=== PATIENT | female | born 2000 | race Caucasian/White ===

== ENCOUNTER 2023-04-11 10:37 | Inpatient (IN) ==
[2023-04-11 11:25] LABS: Basophils # (auto) 0.04 K/uL (0.00-0.20); Basophils % (auto) 0.3 %; Eosinophils # (auto) 0.02 K/uL (0.00-0.50); Eosinophils % (auto) 0.2 %; Hematocrit (blood only) 36.5 % (37.0-47.0); Hemoglobin 12.3 g/dl (12.0-16.0); Immature Granulocytes # (auto) 0.07 K/uL (0.01-0.20); Immature Granulocytes % (auto) 0.5 %; Lymphocytes # (auto) 1.34 K/uL (1.20-3.40); Lymphocytes % (auto) 10.4 %; Mean Corpuscular Hgb Conc 33.7 g/dL (32.0-36.0); Mean Platelet Volume 8.9 fL (9.4-12.4); Monocytes # (auto) 0.67 K/uL (0.11-0.59); Monocytes % (auto) 5.2 %; Neutrophils % (auto) 83.4 %; Platelet Count 322 K/uL (130-400); RDW Coefficient of Variation 11.6 % (11.5-14.5); RDW Standard Deviation 37.2 fL (36.4-46.3); White Blood Count 12.94 K/ul (4.8-10.8)
--- NOTE | 2023-04-11 11:29 | XRay Report ---
SINGLE VIEW CHEST CLINICAL HISTORY: Atypical chest pain FINDINGS: An AP, portable, upright chest radiograph is obtained. No prior studies are available for c omparison at the time of dictation. The cardiomediastinal silhouette is unremarkable. The lungs and p leural spaces are clear. No pneumothorax is seen. The bony thorax is grossly intact. IMPRESSION: No active disease in the chest. ACT 112: Negative or not required by law. Electronically signed by: Ceasra Munson M.D. 04/11/2023 11:28 AM
[2023-04-11 11:34] LABS: INR 1.1 (0.9-1.1); Partial Thromboplastin Ratio 0.7; Prothrombin Time 11.6 Seconds (9.0-12.0)
[2023-04-11 11:37] LABS: Partial Thromboplastin Time < 20 Seconds (21-31)
[2023-04-11 11:39] LABS: Albumin Level 4.2 gm/dl (3.4-5.0); Anion Gap 8 (3-11); Bilirubin,Total 1.8 mg/dl (0.2-1.0); Calcium 8.6 mg/dl (8.6-10.3); Carbon Dioxide 23 mmol/L (21-32); Chloride 105 mmol/L (98-107); Sodium 136 mmol/L (136-145)
[2023-04-11 11:44] LABS: D Dimer 960 ug/L FEU (0-500)
[2023-04-11 11:45] LABS: Alanine Aminotransferase 11 U/L (7-52); Alkaline Phosphatase 48 U/L (34-104); Aspartate Aminotransferase 14 U/L (13-39); Blood Urea Nitrogen 17 mg/dl (6-23); Creatinine Clr Calc Pharmacy 78.3 ml/min; Est GFR (African American) 86.3 ml/min; Est GFR (Non-African American) 74.5 ml/min; Globulin 2.1 gm/dl (2.5-4.0); Glucose 175 mg/dl (70-99(Fasting)); Total Protein 6.3 gm/dl (6.0-8.3)
[2023-04-11 11:51] LABS: Troponin I High Sensitivity < 2.3 pg/ml (0-14)
[2023-04-11] MEDS: SODIUM CHLORIDE 0.9% 1,000 ML IV ONE (11:58)
[2023-04-11] MEDS: ONDANSETRON INJ 2 MG/ML 2 ML VIAL IV STA (11:58)
--- NOTE | 2023-04-11 12:07 | Emergency Department Note ---
History of Present Illness General Chief complaint: Illness Stated complaint: dizziness, bleeding, nauseous, blurred vision, sob Time Seen by Provider: 04/11/23 11:04 History of Present Illness Maximum Pain Intensity: 6 NAME: FERNANDO FARMER AGE: 23 SEX: F : 2000 ARRIVES VIA: Walk-In INFORMANT: Patient ED PROVIDER(S): JESSICA Vega, Romeo Bermudez, The patient is a 23-year-old female who arrives to the emergency department for vaginal bleeding, dizziness, pain with inspiration in her chest, as well as some diffuse lower abdominal pain. The patient was seen here yesterday because she was having abnormal vaginal bleeding. The patient reports on March 06 she took a Plan B after unprotected intercourse. She reports over the last month she has had intermittent irregular vaginal bleeding. Yesterday she received a thorough workup including a beta hCG quant as well as a transvaginal ultrasound. The beta-hCG quant resulted at 302. The transvaginal ultrasound was negative for intra uterine or extra uterine gestation. The patient was discharged home in good condition, according to the providers note she was instructed to return for any concerning signs or symptoms. Allergies Allergy/AdvReac Type Severity Reaction Status Date / Time No Known Allergies Allergy Verified 04/10/23 15:20 Past Med/Surg History Medical History Encounter for pre-operative examination No significant past medical history Surgical History S/P ACL reconstruction Social History Smoking Status: Former smoker Second Hand Exposure: No; Do You Dip or Chew Tobacco: No; Tobacco Cessation Education Requested by Patient: No Hx Alcohol Use: Yes Hx Substance Use: Yes Last Used Substance: Days (ago) Last Used Substance Other:: 5-7 days ago Preferred Language: American Communication Ability: Effective [employer] Supervisor Required: No Beliefs That Will Affect Care: None Current Living Situation: Other Current Living Situation Comment: friends Feels Safe at Home: Yes Safety Concerns: Feels Safe At This Time Assistive Devices: None Physical Exam Vital Signs Vital Signs - 24 hr 04/11/23 10:39 04/11/23 12:02 04/11/23 12:02 Temperature 36.8 C Temperature Source Temporal Artery Scan Pulse Rate 109 H Pulse Rate [Apical] 72 Pulse Rate from SpO2 Sensor Pulse Rhythm [Apical] Regular Respiratory Rate 18 18 Respiratory Effort / Characteristics Non-Labored Spontaneous Non-Labored Spontaneous Respiratory Depth Normal Normal Respiratory Pattern Regular Blood Pressure 104/68 Blood Pressure [Right Arm] 115/69 Blood Pressure Mean 80 Blood Pressure Mean [Right Arm] 84 Blood Pressure Position Sitting Blood Pressure Position [Right Arm] Lying Pulse Oximetry 100 100 100 Oxygen Delivery Method Room Air Room Air Room Air Sepsis Recent Fever Within 48 Hours No Sepsis New/Unexplained Change in Mental Status No Sepsis Action Taken by Nursing No Action Required 04/11/23 12:43 04/11/23 12:44 04/11/23 12:45 Temperature Temperature Source Pulse Rate 73 70 Pulse Rate [Apical] 72 Pulse Rate from SpO2 Sensor 74 Pulse Rhythm [Apical] Respiratory Rate 16 22 Respiratory Effort / Characteristics Respiratory Depth Respiratory Pattern Blood Pressure Blood Pressure [Right Arm] 111/66 Blood Pressure Mean Blood Pressure Mean [Right Arm] 81 Blood Pressure Position Blood Pressure Position [Right Arm] Lying Pulse Oximetry 100 100 Oxygen Delivery Method Sepsis Recent Fever Within 48 Hours Sepsis New/Unexplained Change in Mental Status Sepsis Action Taken by Nursing 04/11/23 12:45 04/11/23 12:58 04/11/23 12:58 Temperature Temperature Source Pulse Rate 70 76 Pulse Rate [Apical] Pulse Rate from SpO2 Sensor 70 78 Pulse Rhythm [Apical] Respiratory Rate 22 14 Respiratory Effort / Characteristics Respiratory Depth Respiratory Pattern Blood Pressure 129/73 Blood Pressure [Right Arm] Blood Pressure Mean 80 Blood Pressure Mean [Right Arm] Blood Pressure Position Blood Pressure Position [Right Arm] Pulse Oximetry 100 100 Oxygen Delivery Method Sepsis Recent Fever Within 48 Hours Sepsis New/Unexplained Change in Mental Status Sepsis Action Taken by Nursing 04/11/23 13:00 04/11/23 13:00 04/11/23 13:15 Temperature Temperature Source Pulse Rate 73 74 Pulse Rate [Apical] Pulse Rate from SpO2 Sensor 74 74 Pulse Rhythm [Apical] Respiratory Rate 18 18 Respiratory Effort / Characteristics Respiratory Depth Respiratory Pattern Blood Pressure 109/73 Blood Pressure [Right Arm] Blood Pressure Mean 79 Blood Pressure Mean [Right Arm] Blood Pressure Position Blood Pressure Position [Right Arm] Pulse Oximetry 100 100 Oxygen Delivery Method Sepsis Recent Fever Within 48 Hours Sepsis New/Unexplained Change in Mental Status Sepsis Action Taken by Nursing 04/11/23 13:15 04/11/23 13:35 04/11/23 13:45 Temperature Temperature Source Pulse Rate 87 81 Pulse Rate [Apical] Pulse Rate from SpO2 Sensor Pulse Rhythm [Apical] Respiratory Rate 20 22 Respiratory Effort / Characteristics Respiratory Depth Respiratory Pattern Blood Pressure 119/73 Blood Pressure [Right Arm] Blood Pressure Mean 79 Blood Pressure Mean [Right Arm] Blood Pressure Position Blood Pressure Position [Right Arm] Pulse Oximetry Oxygen Delivery Method Sepsis Recent Fever Within 48 Hours Sepsis New/Unexplained Change in Mental Status Sepsis Action Taken by Nursing 04/11/23 15:00 04/11/23 16:03 04/11/23 16:16 Temperature 37.6 C H Temperature Source Oral Pulse Rate 103 H Pulse Rate [Apical] 108 H 72 Pulse Rate from SpO2 Sensor Pulse Rhythm [Apical] Regular Respiratory Rate 18 20 18 Respiratory Effort / Characteristics Non-Labored Spontaneous Non-Labored Spontaneous Normal for Patient Respiratory Depth Normal Normal Respiratory Pattern Regular Blood Pressure 103/68 Blood Pressure [Right Arm] 129/77 113/67 Blood Pressure Mean Blood Pressure Mean [Right Arm] 94 82 Blood Pressure Position Blood Pressure Position [Right Arm] Sitting Semi-fowlers Pulse Oximetry 100 100 100 Oxygen Delivery Method Room Air Room Air Room Air Sepsis Recent Fever Within 48 Hours Sepsis New/Unexplained Change in Mental Status Sepsis Action Taken by Nursing VITALS: Vitals are noted on the nurse's note and reviewed by myself. Vital signs stable. GENERAL: 23-year-old female, in no acute distress, nondiaphoretic, well- developed well-nourished. SKIN: The skin was without rashes, erythema, edema, or bruising. HEAD: Normocephalic atraumatic. HEART: Regular rate and rhythm without murmurs gallops or rubs. LUNGS: Clear to auscultation bilaterally without wheezes, rales or rhonchi. No retractions or accessory muscle use. ABDOMEN: Positive bowel sounds x 4. Soft, slightly tender to palpation diffusely in the lower abdomen, without masses or organomegaly. Kapadia sign negative. No guarding or rebound tenderness. NEURO: Patient was alert and oriented to person place and time. No focal neurological deficits. Course Administered Medications Lactated Ringer's (Lr) 1,000 mls @ 15 mls/hr IV .Q24H ELIER Stop: 05/11/23 15:44 Last Infusion: 04/11/23 16:10 Dose: Infused Documented By: Admin: 04/11/23 16:09 Dose: 15 mls/hr Documented By: MIKE Discontinued Medications Bupivacaine HCl (Bupivacaine 0.5 % 5 Mg/1 Ml Mpf 30ml Vial) Confirm Administered Dose 30 ml .ROUTE .STK-MED ONE Stop: 04/11/23 16:18 Last Admin: 04/11/23 17:45 Dose: 10 ml Documented By: SANDI Sodium Chloride (Nss) 1,000 mls @ 999 mls/hr IV .Q1H1M ONE Stop: 04/11/23 12:06 Last Infusion: 04/11/23 14:22 Dose: Infused Documented By: Admin: 04/11/23 11:58 Dose: 999 mls/hr Documented By: CLIVE Ioversol (Optiray 320 125ml) 119 ml IV ONCE ONE Stop: 04/11/23 12:25 Last Admin: 04/11/23 12:24 Dose: 119 ml Documented By: JOSH Ondansetron HCl (Ondansetron Inj 2 Mg/Ml 2 Ml Vial) 4 mg IV NOW STA Stop: 04/11/23 11:07 Last Admin: 04/11/23 11:58 Dose: 4 mg Documented By: CLIVE Tranexamic Acid (Tranexamic Acid / 0.7% Nacl 1000mg/100ml Bag) Confirm Administered Dose 1,000 mg IV .STK-MED ONE Stop: 04/11/23 16:08 Last Admin: 04/11/23 16:09 Dose: 1,000 mg Documented By: MIKE Medical Decision Making Differential Diagnosis Appendicitis, ovarian cyst, ovarian torsion, ectopic , TOA, PID, infections, diverticulitis, UTI, obstruction, mesenteric ischemia, aortic pathology, inflammatory bowel disease, renal colic, PUD, pancreatitis, biliary pathology, hernia, volvulus, constipation, as well as other pathologies. Medical Records Attestation: I reviewed the patient's medical records. Home Medications Current Medication List: was personally reviewed by me Laboratory Data Attestation: I reviewed the patient's lab results. leukocytosis 12.94, hemoglobin 12.3, hematocrit 36.5, no electrolyte abnormalities, D-dimer 960, blood type a positive, antibody screen negative. 04/11/23 20:25 04/11/23 11:03 Lab Results 04/11/23 04/11/23 Range/Units 11:03 15:34 WBC 12.94 H 13.12 H (4.8-10.8) K/ul RBC 4.10 L 3.56 L (4.20-5.40) M/uL Hgb 12.3 10.6 L (12.0-16.0) g/dl Hct 36.5 L 31.8 L (37.0-47.0) % MCV 89.0 89.3 (80.0-100.0) fL MCH 30.0 29.8 (25.0-34.0) pg MCHC 33.7 33.3 (32.0-36.0) g/dL RDW Std Deviation 37.2 37.0 (36.4-46.3) fL RDW Coeff of Eber 11.6 11.4 L (11.5-14.5) % Plt Count 322 275 (130-400) K/uL MPV 8.9 L 8.8 L (9.4-12.4) fL Immature Gran % (Auto) 0.5 % Neut % (Auto) 83.4 % Lymph % (Auto) 10.4 % [facility] % (Auto) 5.2 % Eos % (Auto) 0.2 % Baso % (Auto) 0.3 % Neut # (Auto) 10.80 H (1.40-6.50) K/uL Lymph # (Auto) 1.34 (1.20-3.40) K/uL [facility] # (Auto) 0.67 H (0.11-0.59) K/uL Eos # (Auto) 0.02 (0.00-0.50) K/uL Baso # (Auto) 0.04 (0.00-0.20) K/uL Immature Gran # (Auto) 0.07 (0.01-0.20) K/uL PT 11.6 (9.0-12.0) Seconds INR 1.1 (0.9-1.1) APTT < 20 L (21-31) Seconds PTT Ratio 0.7 D-Dimer 960 H* (0-500) ug/L FEU Sodium 136 (136-145) mmol/L Potassium 4.0 (3.5-5.1) mmol/L Chloride 105 (98-107) mmol/L Carbon Dioxide 23 (21-32) mmol/L Anion Gap 8 (3-11) BUN 17 (6-23) mg/dl Creatinine 1.06 (0.6-1.2) mg/dl Est Cr Clr Drug Dosing 78.3 ml/min Est GFR ( Amer) 86.3 ml/min Est GFR (Non-Af Amer) 74.5 ml/min BUN/Creatinine Ratio 16.0 (10-20) Glucose 175 H (70-99(Fasting)) mg/dl Calcium 8.6 (8.6-10.3) mg/dl Total Bilirubin 1.8 H (0.2-1.0) mg/dl AST 14 (13-39) U/L ALT 11 (7-52) U/L Alkaline Phosphatase 48 (34-104) U/L Troponin I High Sens < 2.3 (0-14) pg/ml Total Protein 6.3 (6.0-8.3) gm/dl Albumin 4.2 (3.4-5.0) gm/dl Globulin 2.1 L (2.5-4.0) gm/dl Albumin/Globulin Ratio 2.0 (0.9-2) HCG, Quant 155 mIU/ml Blood Type A Positive Antibody Screen NEGATIVE Imaging Data Attestation: I personally reviewed and interpreted this imaging study as follows: My Impression: Initial x-ray interpretation per myself shows no acute cardiopulmonary abnormality, will await formal radiology report. Radiologist's Impression: Chest X-Ray 04/11/23 10:44 SINGLE VIEW CHEST CLINICAL HISTORY: Atypical chest pain FINDINGS: An AP, portable, upright chest radiograph is obtained. No prior studies are available for comparison at the time of dictation. The cardiomediastinal silhouette is unremarkable. The lungs and pleural spaces are clear. No pneumothorax is seen. The bony thorax is grossly intact. IMPRESSION: No active disease in the chest. ACT 112: Negative or not required by law. Electronically signed by: Ceasar Munson M.D. 04/11/2023 11:28 AM Chest CTA 04/11/23 12:07 CT ANGIOGRAPHY OF THE CHEST, PULMONARY EMBOLUS PROTOCOL CLINICAL HISTORY: Shortness of breath. COMPARISON STUDY: Chest radiograph April 11, 2023 at 11:18 AM. TECHNIQUE: Following IV administration of 119 mL of Optiray, helical axial images of the chest were obtained utilizing the pulmonary embolus protocol. Maximal intensity projections and sagittal and coronal reformats were viewed on an independent 3D workstation. IV contrast was administered without complication. Automated exposure control was utilized for the study. A dose lowering technique was utilized adhering to the principles of ALARA. CT DOSE: 432.36 mGy.cm FINDINGS: No pulmonary emboli are identified. There is no thoracic aortic dissection. Size of the heart is normal. There is no pericardial effusion. Incidental note is made of an aberrant right subclavian artery. Lungs are clear. No pneumothorax or pleural effusion. No pulmonary nodules. Central airways are patent. Bony thorax is unremarkable. Visualized portions of the upper abdomen demonstrate a small amount of perihepatic and perisplenic fluid. In addition, there is fluid within the lesser sac. Fluid measures approximately 49 Hounsfield units. This is suggestive of hemoperitoneum. IMPRESSION: 1. No pulmonary emboli identified. No acute intrathoracic findings. 2. Small amount of hemoperitoneum within the upper abdomen. This is nonspecific however correlation with test is recommended. If positive, a ruptured ectopic is the diagnosis of exclusion. A ruptured ovarian cyst could result in a similar imaging appearance. A follow-up pelvic ultrasound is recommended. Findings discussed with Arleth Elkins at time of dictation. ACT 112: Negative or not required by law. Electronically signed by: Edd Dunbar M.D. 04/11/2023 12:41 PM Pelvis Ultrasound 04/11/23 12:48 ULTRASOUND OF THE PELVIS CLINICAL HISTORY: Hemoperitoneum seen on chest CT. Positive test. COMPARISON STUDY: Pelvic ultrasound dated 04/10/2023. Chest CT dated 04/11/2023. TECHNIQUE: Real-time, grayscale, and color flow sonography of the pelvis is performed both transabdominally and endovaginally. Images are reviewed in the transverse and longitudinal planes. The endovaginal examination was performed for better assessment of the adnexa. FINDINGS: Uterus: The uterus is normal in size and echotexture, measuring 8.0 x 3.5 x 3.4 cm. Endometrium: The endometrium is normal in appearance, and the endometrial stripe is normal in thickness measuring up to 0.4 cm. There is trace fluid versus a tiny cystic focus within the endometrium. No intrauterine gestation is seen. Ovaries: The ovaries are normal in size and morphology. The right ovary measures 2.3 x 1.3 x 3.0 cm and the left ovary measures 2.4 x 1.6 x 1.5 cm. Bilateral follicles are noted. Normal Doppler waveforms are shown within both ovaries. Pelvis: There is a moderate to large volume of complex free fluid in the pelvis. This is also seen in the upper abdomen. No definite adnexal lesion is identified. IMPRESSION: 1. There is a moderate to large volume of complex free fluid in the pelvis. This is there is new from yesterday and consistent with hemoperitoneum when correlated with today's chest CT. Fluid extends into the upper abdomen. Although no definite adnexal lesion is identified, given the findings of a positive beta hCG and hemoperitoneum a rupturing ectopic is the diagnosis of exclusion. Emergent obstetrical surgical assessment is required. 2. The ovaries are normal as imaged. ACT 112: Negative or not required by law. Electronically signed by: Ceasar Munson M.D. 04/11/2023 2:52 PM Transvaginal US 04/11/23 12:48 ULTRASOUND OF THE PELVIS CLINICAL HISTORY: Hemoperitoneum seen on chest CT. Positive test. COMPARISON STUDY: Pelvic ultrasound dated 04/10/2023. Chest CT dated 04/11/2023. TECHNIQUE: Real-time, grayscale, and color flow sonography of the pelvis is performed both transabdominally and endovaginally. Images are reviewed in the transverse and longitudinal planes. The endovaginal examination was performed for better assessment of the adnexa. FINDINGS: Uterus: The uterus is normal in size and echotexture, measuring 8.0 x 3.5 x 3.4 cm. Endometrium: The endometrium is normal in appearance, and the endometrial stripe is normal in thickness measuring up to 0.4 cm. There is trace fluid versus a tiny cystic focus within the endometrium. No intrauterine gestation is seen. Ovaries: The ovaries are normal in size and morphology. The right ovary measures 2.3 x 1.3 x 3.0 cm and the left ovary measures 2.4 x 1.6 x 1.5 cm. Bilateral follicles are noted. Normal Doppler waveforms are shown within both ovaries. Pelvis: There is a moderate to large volume of complex free fluid in the pelvis. This is also seen in the upper abdomen. No definite adnexal lesion is identified. IMPRESSION: 1. There is a moderate to large volume of complex free fluid in the pelvis. This is there is new from yesterday and consistent with hemoperitoneum when correlated with today's chest CT. Fluid extends into the upper abdomen. Although no definite adnexal lesion is identified, given the findings of a positive beta hCG and hemoperitoneum a rupturing ectopic is the diagnosis of exclusion. Emergent obstetrical surgical assessment is required. 2. The ovaries are normal as imaged. ACT 112: Negative or not required by law. Electronically signed by: Ceasar Munson M.D. 04/11/2023 2:52 PM Blood Pressure Blood Pressure Findings: Normal blood pressure MDM Narrative The patient is a 23-year-old female arriving to the emergency department for the evaluation of the above-stated complaint. Upon examination the patient is expressing chest pain with inspiration, she reports some dizziness with changing positions. She denies any significant increase in her lower abdominal tenderness, however she does state that she is having increased vaginal bleeding. She was instructed to return tomorrow for repeat hCG to ensure that her hCG level is declining. Her initial orders were placed in triage. A saline lock was obtained, CBC, CMP, beta quant, ABO Rh, D-dimer were ordered based on the patient's symptoms. 1 L of normal saline as well as 4 mg of IV Zofran were given to the patient. Labs showed a decrease in hemoglobin from the day before of 2 points. The D-dimer did result as elevated at 950, therefore a CT PE study was obtained. I was contacted by Dr. Dunbar regarding the CT report. He reported the patient had a hemoperitoneum that he was able to visualize while performing the CT PE study. At this time I contacted Dr. Mcdonnell from [employer] who recommended a repeat CBC, and a repeat transvaginal/pelvic ultrasound. Repeat labs resulted at 10.6 hemoglobin. Transvaginal/pelvic ultrasound shows a moderate to large volume of complex free fluid in the pelvis, new from yesterday. This is consistent with a hemoperitoneum, the fluid extends into the upper abdomen. Given the patient's most recent diagnosis and decreasing hCG level it is consistent with an ectopic rupture. Dr. Mcdonnell was contacted immediately after I received the report, she viewed the report herself and assumed care of patient for immediate surgical intervention. Preoperative orders for type and screen, and EKG were placed at that time. The patient was consulted by Dr. Mcdonnell and taken assisted to the OR via staff. Impression & Plan Ruptured ectopic , Hemoperitoneum Discharge Plan Visit Data Chief Complaint: Illness Stated Complaint: dizziness, bleeding, nauseous, blurred vision, sob ED Provider: Romeo Bermudez ED Midlevel Provider: Arleth Elkins Discharge Problem: Ruptured ectopic , Hemoperitoneum Patient Disposition: Admitted As Inpatient Discharge Instructions Interventions: ED Discharge Assessment Last Done: 04/11/23 16:16
[2023-04-11] MEDS: OPTIRAY 320 125ml IV ONE (12:24)
--- NOTE | 2023-04-11 12:42 | CT Scan Report ---
CT ANGIOGRAPHY OF THE CHEST, PULMONARY EMBOLUS PROTOCOL CLINICAL HISTORY: Shortness of breath. COMPARISON STUDY: Chest radiograph April 11, 2023 at 11:18 AM. TECHNIQUE: Following IV administration of 119 mL of Optiray, helical axial images of the chest were o btained utilizing the pulmonary embolus protocol. Maximal intensity projections and sagittal and cor onal reformats were viewed on an independent 3D workstation. IV contrast was administered without co mplication. Automated exposure control was utilized for the study. A dose lowering technique was ut ilized adhering to the principles of ALARA. CT DOSE: 432.36 mGy.cm FINDINGS: No pulmonary emboli are identified. There is no thoracic aortic dissection. Size of the he art is normal. There is no pericardial effusion. Incidental note is made of an aberrant right subclav matty artery. Lungs are clear. No pneumothorax or pleural effusion. No pulmonary nodules. Central airwa ys are patent. Bony thorax is unremarkable. Visualized portions of the upper abdomen demonstrate a sm all amount of perihepatic and perisplenic fluid. In addition, there is fluid within the lesser sac. F luid measures approximately 49 Hounsfield units. This is suggestive of hemoperitoneum. IMPRESSION: 1. No pulmonary emboli identified. No acute intrathoracic findings. 2. Small amount of hemoperitoneum within the upper abdomen. This is nonspecific however correlation w ith test is recommended. If positive, a ruptured ectopic is the diagnosis of excl usion. A ruptured ovarian cyst could result in a similar imaging appearance. A follow-up pelvic ultra sound is recommended. Findings discussed with Arleth Elkins at time of dictation. ACT 112: Negative or not required by law. Electronically signed by: Edd Dunbar M.D. 04/11/2023 12:41 PM
--- NOTE | 2023-04-11 14:54 | Ultrasound Report ---
ULTRASOUND OF THE PELVIS CLINICAL HISTORY: Hemoperitoneum seen on chest CT. Positive test. COMPARISON STUDY: Pelvic ultrasound dated 04/10/2023. Chest CT dated 04/11/2023. TECHNIQUE: Real-time, grayscale, and color flow sonography of the pelvis is performed both transabdom inally and endovaginally. Images are reviewed in the transverse and longitudinal planes. The endovagi nal examination was performed for better assessment of the adnexa. FINDINGS: Uterus: The uterus is normal in size and echotexture, measuring 8.0 x 3.5 x 3.4 cm. Endometrium: The endometrium is normal in appearance, and the endometrial stripe is normal in thickne ss measuring up to 0.4 cm. There is trace fluid versus a tiny cystic focus within the endometrium. No intrauterine gestation is seen. Ovaries: The ovaries are normal in size and morphology. The right ovary measures 2.3 x 1.3 x 3.0 cm a nd the left ovary measures 2.4 x 1.6 x 1.5 cm. Bilateral follicles are noted. Normal Doppler waveform s are shown within both ovaries. Pelvis: There is a moderate to large volume of complex free fluid in the pelvis. This is also seen in the upper abdomen. No definite adnexal lesion is identified. IMPRESSION: 1. There is a moderate to large volume of complex free fluid in the pelvis. This is there is new from yesterday and consistent with hemoperitoneum when correlated with today's chest CT. Fluid extends in to the upper abdomen. Although no definite adnexal lesion is identified, given the findings of a posi tive beta hCG and hemoperitoneum a rupturing ectopic is the diagnosis of exclusion. Emergen t obstetrical surgical assessment is required. 2. The ovaries are normal as imaged. ACT 112: Negative or not required by law. Electronically signed by: Ceasar Munson M.D. 04/11/2023 2:52 PM
--- NOTE | 2023-04-11 15:07 | Electrocardiogram Report ---
Test Reason : Blood Pressure : / mmHG Vent. Rate : 124 BPM Atrial Rate : 124 BPM P-R Int : 116 ms QRS Dur : 066 ms QT Int : 306 ms P-R-T Axes : 084 086 056 degrees QTc Int : 439 ms Sinus tachycardia Otherwise normal ECG No previous ECGs available Confirmed by Edward Kerr ([id number]) on 04/11/2023 3:06:30 PM Referred By: REFERRED SELF Confirmed By:Edward Kerr
[2023-04-11] MEDS ORDERED: PROPOFOL IV EMULSION 10 MG/ML 20 ML VIAL IV ONE (15:40)
[2023-04-11] MEDS ORDERED: DEXAMETHASONE SOD INJ 4 MG/ML VIAL ONE (15:40)
[2023-04-11] MEDS ORDERED: ONDANSETRON INJ 2 MG/ML 2 ML VIAL ONE (15:40)
[2023-04-11] MEDS ORDERED: ROCURONIUM BROMIDE 10 MG/ML 5 ML VIAL IV ONE (15:40)
[2023-04-11] MEDS ORDERED: SUCCINYLCHOLINE CHLORIDE 20 MG/ML 10 ML VIAL IV ONE (15:40)
--- NOTE | 2023-04-11 15:40 | OB/GYN Consultation ---
Date of Consultation April 11, 2023 Assessment & Plan (1) Ruptured ectopic : I discussed the physical exam, lab, imaging findings with patient. Given the drop in hemoglobin, sudden onset abdominal pain, physical exam findings of tenderness and guarding, and appearance of blood in the abdomen, this appears to be a ruptured ectopic . I advised to the patient that we proceed to the operating room for diagnostic laparoscopy for evaluation and management of the bleeding. We reviewed informed consent in detail. I answered all of her questions. She asked me to call her mom on the phone, I spoke with her mother and answered her questions as well. Patient is agreeable to proceed to the OR. CBC repeat is still pending, will have 2 units PRBC on standby if needed. History of Present Illness Reason for Consultation: vaginal bleeding, Requesting Physician: Arleth Elkins History of Present Illness 23yo with + test at home, came to ER yesterday with irregular bleeding. She returns today with severely worsened symptoms. She had taken Plan B on 03/06/2023 after unprotected intercourse, and then had a normal period starting 03/20/2023. She then developed abnormal bleeding over the past 2 weeks. Yesterday, her beta hCG quant was 302, today it is 155. She then returned to the emergency department today after starting to feel worse last night. She develops difficulty breathing, abdominal pain-worse on left side. She has not eaten much today except for a few sips of water approximately 4 to 5 hours ago. Hemoglobin yesterday was 14.7, on arrival to ER today it was 12.3. A repeat is pending. Yesterday's ultrasound showed a normal uterus, unremarkable ovaries and no adnexal masses or lesions. Today's ultrasound shows a normal endometrium, 0.4 cm endometrial stripe. Trace fluid versus tiny cystic focus within the endometrium, no intrauterine gestation. Normal ovaries. Moderate to large volume of complex free fluid in the pelvis, this is also seen in the upper abdomen. No definite adnexal lesion identified. Allergies Allergy/AdvReac Type Severity Reaction Status Date / Time No Known Allergies Allergy Verified 04/10/23 15:20 Patient History Medical History No significant past medical history Surgical History S/P ACL reconstruction Social History Smoking Status: Former smoker Preferred Language: Bhutanese Feels Safe at Home: Yes Physical Exam Physical Exam: Constitutional: alert, in no acute distress, well nourished, well developed. Pale. Skin: Pale. Neck: the appearance of the neck was normal, no neck mass was observed, the thyroid was not enlarged Pulmonary: no respiratory distress, normal respiratory rhythm and effort and clear bilateral breath sounds. Cardiovascular: heart rate and rhythm were normal Abdomen: nondistended, but +guarding and tender across lower abdomen Neurological: The patient was oriented to person, place, and time. Mood and affect were appropriate. Extremities: No edema, no calf tenderness. Results & Data Vital Signs (Past 12 Hours) Vital Signs Temp Pulse Pulse Resp BP BP Pulse Ox 04/11/23 15:00 108 H 18 129/77 100 04/11/23 13:45 81 22 04/11/23 13:35 87 20 04/11/23 13:15 119/73 04/11/23 13:15 74 18 100 04/11/23 13:00 73 18 100 04/11/23 13:00 109/73 04/11/23 12:58 76 14 100 04/11/23 12:58 129/73 04/11/23 12:45 70 22 100 04/11/23 12:45 70 04/11/23 12:44 73 22 100 04/11/23 12:43 72 16 111/66 100 04/11/23 12:02 100 04/11/23 12:02 72 18 115/69 100 04/11/23 10:39 36.8 C 109 H 18 104/68 100 O2 Del Method 04/11/23 15:00 Room Air 04/11/23 13:45 04/11/23 13:35 04/11/23 13:15 04/11/23 13:15 04/11/23 13:00 04/11/23 13:00 04/11/23 12:58 04/11/23 12:58 04/11/23 12:45 04/11/23 12:45 04/11/23 12:44 04/11/23 12:43 04/11/23 12:02 Room Air 04/11/23 12:02 Room Air 04/11/23 10:39 Room Air PG Care Time/CCT Total # of Minutes Spent Total Time Spent with Patient: Total time spent is greater than 50% in coordination of care (as documented) at patient's floor/unit and/or counseling patient: Coding Level of Care Code 99720 OFFICE CONSULT LVL Diagnoses Ruptured ectopic O00.90
[2023-04-11] MEDS ORDERED: fentaNYL citrate PF 100 MCG/2 ML VIAL ONE ×2 (15:41→17:29)
[2023-04-11] MEDS ORDERED: MIDAZOLAM HCL 1 MG/ML 2ML VIAL ONE (15:41)
--- NOTE | 2023-04-11 15:49 | History & Physical Report ---
Date of Service April 11, 2023 Assessment & Plan (1) Ruptured ectopic : Plan: I discussed the physical exam, lab, imaging findings with patient. Given the drop in hemoglobin, sudden onset abdominal pain, physical exam findings of tenderness and guarding, and appearance of blood in the abdomen, this appears to be a ruptured ectopic . I advised to the patient that we proceed to the operating room for diagnostic laparoscopy for evaluation and management of the bleeding. We reviewed informed consent in detail. I answered all of her questions. She asked me to call her mom on the phone, I spoke with her mother and answered her questions as well. Patient is agreeable to proceed to the OR. CBC repeat is still pending, will have 2 units PRBC on standby if needed. History of Present Illness Chief Complaint: ruptured ectopic Primary Care Provider: NO PCP 23yo with + test at home, came to ER yesterday with irregular bleeding. She returns today with severely worsened symptoms. She had taken Plan B on 03/06/2023 after unprotected intercourse, and then had a normal period starting 03/20/2023. She then developed abnormal bleeding over the past 2 weeks. Yesterday, her beta hCG quant was 302, today it is 155. She then returned to the emergency department today after starting to feel worse last night. She develops difficulty breathing, abdominal pain-worse on left side. She has not eaten much today except for a few sips of water approximately 4 to 5 hours ago. Hemoglobin yesterday was 14.7, on arrival to ER today it was 12.3. A repeat is pending. Yesterday's ultrasound showed a normal uterus, unremarkable ovaries and no adnexal masses or lesions. Today's ultrasound shows a normal endometrium, 0.4 cm endometrial stripe. Trace fluid versus tiny cystic focus within the endometrium, no intrauterine gestation. Normal ovaries. Moderate to large volume of complex free fluid in the pelvis, this is also seen in the upper abdomen. No definite adnexal lesion identified. Allergies Allergy/AdvReac Type Severity Reaction Status Date / Time No Known Allergies Allergy Verified 04/10/23 15:20 Patient History Medical History No significant past medical history Surgical History S/P ACL reconstruction Social History Smoking Status: Former smoker Preferred Language: Romanian Feels Safe at Home: Yes Physical Exam Physical Exam: Constitutional: alert, in no acute distress, well nourished, well developed. Pale. Skin: Pale. Neck: the appearance of the neck was normal, no neck mass was observed, the thyroid was not enlarged Pulmonary: no respiratory distress, normal respiratory rhythm and effort and clear bilateral breath sounds. Cardiovascular: heart rate and rhythm were normal Abdomen: nondistended, but +guarding and tender across lower abdomen Neurological: The patient was oriented to person, place, and time. Mood and affect were appropriate. Extremities: No edema, no calf tenderness. Results & Data Vital Signs (Past 12 Hours) Vital Signs Temp Pulse Pulse Resp BP BP Pulse Ox 04/11/23 15:00 108 H 18 129/77 100 04/11/23 13:45 81 22 04/11/23 13:35 87 20 04/11/23 13:15 119/73 04/11/23 13:15 74 18 100 04/11/23 13:00 73 18 100 04/11/23 13:00 109/73 04/11/23 12:58 76 14 100 04/11/23 12:58 129/73 04/11/23 12:45 70 22 100 04/11/23 12:45 70 04/11/23 12:44 73 22 100 04/11/23 12:43 72 16 111/66 100 04/11/23 12:02 100 04/11/23 12:02 72 18 115/69 100 04/11/23 10:39 36.8 C 109 H 18 104/68 100 O2 Del Method 04/11/23 15:00 Room Air 04/11/23 13:45 04/11/23 13:35 04/11/23 13:15 04/11/23 13:15 04/11/23 13:00 04/11/23 13:00 04/11/23 12:58 04/11/23 12:58 04/11/23 12:45 04/11/23 12:45 04/11/23 12:44 04/11/23 12:43 04/11/23 12:02 Room Air 04/11/23 12:02 Room Air 04/11/23 10:39 Room Air Coding Level of Care Code None Diagnoses Ruptured ectopic O00.90
[2023-04-11] MEDS ORDERED: SODIUM CHLORIDE 0.9% 250 ML IV PRN (15:51)
[2023-04-11 16:00] LABS: Hematocrit (blood only) 31.8 % (37.0-47.0); Hemoglobin 10.6 g/dl (12.0-16.0); Mean Corpuscular Hemoglobin 29.8 pg (25.0-34.0); Mean Corpuscular Hgb Conc 33.3 g/dL (32.0-36.0); Mean Corpuscular Volume 89.3 fL (80.0-100.0); Mean Platelet Volume 8.8 fL (9.4-12.4); Platelet Count 275 K/uL (130-400); RDW Coefficient of Variation 11.4 % (11.5-14.5); Red Blood Count 3.56 M/uL (4.20-5.40); White Blood Count 13.12 K/ul (4.8-10.8)
[2023-04-11] MEDS ORDERED: PROMETHAZINE HCL 6.25 MG in SODIUM CHLORIDE 0.9% 50 ML IV PRN (16:08)
[2023-04-11] MEDS ORDERED: ePHEDrine sulfate 50 MG/ML AMP IV PRN (16:08)
[2023-04-11] MEDS ORDERED: HYDROmorphone INJ 1 MG/ML SYRINGE IV PRN (16:08)
[2023-04-11] MEDS ORDERED: ATROPINE SULFATE 0.1 MG/ML 10ML SYR IV PRN (16:08)
[2023-04-11] MEDS ORDERED: fentaNYL citrate PF 100 MCG/2 ML VIAL IV PRN (16:08)
[2023-04-11] MEDS ORDERED: ONDANSETRON INJ 2 MG/ML 2 ML VIAL IV PRN ×2 (16:08→17:50)
[2023-04-11] MEDS: TRANEXAMIC ACID / 0.7% NACL 1000MG/100ML BAG IV ONE (16:09)
[2023-04-11] MEDS: LACTATED RINGER'S 1,000 ML IV SCH ×2 (16:09→21:37)
--- NOTE | 2023-04-11 16:12 | Anesthesiology Consultation ---
Date of Service April 11, 2023 Assessment & Plan (1) Encounter for pre-operative examination: Chart Review Chart Review: Acceptable Risk for Surgery and Patient NOT seen in Pre Admission Testing Consults Requested none History Surgery Operation Date: 04/11/23 13:50 Proposed Procedures p Laparoscopic Ruptured Ectopic - Viktoriya Mcdonnell DO Height/Weight Height: 5 ft 4 in Weight: 66.9 kg Allergies Allergy/AdvReac Type Severity Reaction Status Date / Time No Known Allergies Allergy Verified 04/10/23 15:20 Medications Active Medications Generic Name Dose Route Start Last Admin Trade Name Freq PRN Reason Stop Dose Admin Lactated Ringer's 1,000 mls @ 15 mls/hr 04/11/23 15:45 04/11/23 16:09 Lr IV 05/11/23 15:44 15 mls/hr .Q24H ELIER Administration NPO Date Last Intake of Fluids: 04/11/23 Time Last Intake of Fluids: 08:30 Date Last Intake of Solids: 04/11/23 Time Last Intake of Solids: 08:30 Past Medical History Medical History (Updated 04/11/23 @ 16:12 by Matthias Bergeron MD) Encounter for pre-operative examination No significant past medical history Exercise / Class Metabolic Activity 1 > 8 Run/Swim/Ski/Tennis Past Surgical History Surgical History S/P ACL reconstruction Past Anesthesia History No Hx of Anesthesia Complications and No Family Hx of Anesthesia Complications History of PONV No Hx of PONV and No Hx of Motion Sickness Social History Smoking Status: Former smoker Physical Exam Vital Signs Last Vital Signs Temp 36.8 C 04/11/23 10:39 Pulse 108 H 04/11/23 15:00 Resp 18 04/11/23 15:00 BP 129/77 04/11/23 15:00 Pulse Ox 100 04/11/23 15:00 O2 Del Method Room Air 04/11/23 15:00 Testing Laboratory Results 04/11/23 15:34 04/11/23 11:03 PT 11.6 Seconds (9.0-12.0) 04/11/23 11:03 INR 1.1 (0.9-1.1) 04/11/23 11:03 APTT < 20 Seconds (21-31) L 04/11/23 11:03 HCG, Quant 155 mIU/ml 04/11/23 11:03 Blood Type A Positive 04/11/23 11:03 Antibody Screen NEGATIVE 04/11/23 11:03 04/11/23 11:03 HCG, Quant 155
[2023-04-11] MEDS ORDERED: SUGAMMADEX SODIUM 200 MG/2 ML VIAL IV ONE (16:31)
[2023-04-11] MEDS: BUPIVACAINE 0.5 % 5 MG/1 ML MPF 30ML VIAL ONE (17:45)
[2023-04-11] MEDS ORDERED: KETOROLAC 30 MG/ML VIAL IV PRN (17:50)
[2023-04-11] MEDS ORDERED: IBUPROFEN 600 MG TAB PO PRN (17:50)
--- NOTE | 2023-04-11 17:50 | Post Operative Brief Note ---
PG Immediate Post Op with CF Date of Surgery April 11, 2023 Pre & Post Diagnosis Operation Date: 04/11/23 13:50 Pre: ruptured ectopic Post: ruptured ectopic I identified the patient and participated in the time-out.: Yes Procedure Operation Date: 04/11/23 13:50 Laparoscopic left salpingectomy Surgeon DO Assistant Mateusz Villanueva MD Estimated Blood Loss 800 Findings See Below Large amount of blood/clots in abdomen, distended left fallopian tube with extruding clot from fimbria. Specimens Specimen Description: left fallopian tube Anesthesia Type General Complications none Disposition Accompanied Patient To Recovery: No Disposition: Recovery Room
--- NOTE | 2023-04-11 18:46 | Operative Report ---
PG Post Operative Report Pre & Post Diagnosis Operation Date: 04/11/23 13:50 Pre-Op Diagnosis: Hemoperitoneum, suspected ruptured ectopic Post-Op Diagnosis: Ruptured ectopic I identified the patient and participated in the time-out.: Yes Procedure Operation Date: 04/11/23 13:50 Actual Procedures p Laparoscopic Left Salpingectomy(Left) - Viktoriya Mcdonnell DO Surgeon Viktoriya Mcdonnell DO Director Talent Mateusz Santos MD Estimated Blood Loss 800 Findings See Below Hemoperitoneum - significant blood and clots in abdomen. Normal appearing uterus/right fallopian tube and bilateral ovaries. Left fallopian tube distended with clots extruding from the fimbria. Specimens left fallopian tube Drains monson, clear yellow, removed at end of case Anesthesia Type General Complications none Disposition Accompanied Patient To Recovery: No Disposition: Recovery Room Indications 23yo with hemoperitoneum and actively dropping hemoglobin with suspected ruptured ectopic . Description of Procedure The patient was seen in the emergency department, where risks benefits and alternatives to surgery reviewed. We reviewed informed consent in detail. Questions were answered. She elected to proceed with the case. She was given 1 g tranexamic acid preoperatively. She was taken to the operating room, general anesthesia was administered. She was prepared and draped in the usual sterile fashion with feet in yellowfin stirrups in the dorsolithotomy position. Timeout was confirmed. Monson catheter was placed in the bladder. A weighted speculum was placed in the vagina, cervix was visualized and its anterior lip was grasped with a single- tooth tenaculum. Of note, the cervix was not dilated and there was no blood in the vaginal vault. The uterine manipulator was placed. Gloves were changed and attention was then turned to the abdomen. The patient was placed in 0 degree flat position. An infraumbilical incision was made with a scalpel, and using direct visual optical entry, the 8 mm umbilical trocar was placed. The abdomen was insufflated with CO2 gas to 15 mmHg. The abdomen was visualized, there was a significant amount of blood clot in the pelvis and throughout the abdomen. Bilateral trocars were placed under direct visualization. Blood clots were suctioned out of the abdomen and pelvis. The patient was then placed in steep Trendelenburg, and the pelvic organs were visualized. The left fallopian tube was distended, with blood clot extruding through the fimbria. This was transected from its mesosalpinx and from the uterus using the LigaSure device. The left fallopian tube was placed in an Endo Catch bag and removed from the abdomen. This was passed off for pathology. The surgical site was hemostatic. The abdomen and pelvis were then irrigated with warm saline and suctioned multiple times until the fluid ran clear and as much blood and clot was suctioned out of the pelvis as possible. All instruments removed from the abdomen, trocars were removed, the abdomen was desufflated of CO2 gas. The incisions were reapproximated using 4-0 Vicryl subcuticular stitch. 0.5% Marcaine was injected at the incisions for local anesthetic. The abdomen was cleaned and dried. Dermabond glue was applied to the incision sites. Instruments were removed from the vagina, excellent hemostasis noted. Monson catheter was removed. The patient tolerated the procedure well, was moved to the recovery area in stable and good condition. I updated her mother and her roommate each by phone per the patient's request at the end of the case. I attest to the content of the Intraoperative Record and any orders documented therein. Any exceptions are noted below. 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
--- NOTE | 2023-04-11 19:44 | Anesthesiology Progress Note ---
Date of Service April 11, 2023 Anesthesia Post Procedure Vital Signs Vital Signs: Temp Pulse Pulse Resp BP BP Pulse Ox 04/11/23 19:05 71 20 110/66 99 04/11/23 18:50 73 18 106/64 98 04/11/23 18:35 36.3 C L 69 21 114/71 99 04/11/23 18:25 67 22 117/69 99 04/11/23 18:15 69 21 119/66 100 04/11/23 18:05 91 H 17 131/73 100 04/11/23 17:56 36.0 C L 125 H 15 120/59 L 100 04/11/23 16:16 103 H 18 103/68 100 04/11/23 16:03 37.6 C H 72 20 113/67 100 04/11/23 15:00 108 H 18 129/77 100 04/11/23 13:45 81 22 04/11/23 13:35 87 20 04/11/23 13:15 119/73 04/11/23 13:15 74 18 100 04/11/23 13:00 73 18 100 04/11/23 13:00 109/73 04/11/23 12:58 76 14 100 04/11/23 12:58 129/73 04/11/23 12:45 70 22 100 04/11/23 12:45 70 04/11/23 12:44 73 22 100 04/11/23 12:43 72 16 111/66 100 04/11/23 12:02 100 04/11/23 12:02 72 18 115/69 100 04/11/23 10:39 36.8 C 109 H 18 104/68 100 O2 Del Method O2 Flow Rate 04/11/23 19:05 Room Air 04/11/23 18:50 Room Air 04/11/23 18:35 Room Air 04/11/23 18:25 Room Air 04/11/23 18:15 Room Air 04/11/23 18:05 Room Air 04/11/23 17:56 Oxymask 6 04/11/23 16:16 Room Air 04/11/23 16:03 Room Air 04/11/23 15:00 Room Air 04/11/23 13:45 04/11/23 13:35 04/11/23 13:15 04/11/23 13:15 04/11/23 13:00 04/11/23 13:00 04/11/23 12:58 04/11/23 12:58 04/11/23 12:45 04/11/23 12:45 04/11/23 12:44 04/11/23 12:43 04/11/23 12:02 Room Air 04/11/23 12:02 Room Air 04/11/23 10:39 Room Air Transfer of Care Handoff Completed per policy Notes Mental Status: alert / awake / arousable and participated in evaluation Patient Amnestic to Procedure: Yes Nausea / Vomiting: adequately controlled Pain: adequately controlled Airway Patency, RR, SpO2: stable & adequate BP & HR: stable & adequate Hydration State: stable & adequate Anesthetic Complications: no major complications apparent and Pt Satisfied with anesthetic care
[2023-04-11 20:34] LABS: Hemoglobin 9.4 g/dl (12.0-16.0)
[2023-04-11] MEDS: TRANEXAMIC ACID / 0.7% NACL 1,000 MG/100 ML BAG IV ONE (21:21)
[2023-04-11] MEDS: oxyCODONE/ACETAMINOPHEN 5mg/325mg TAB PO PRN (22:05)
--- NOTE | 2023-04-11 22:31 | Gynecologic Progress Note ---
Date of Service April 11, 2023 Assessment & Plan (1) Ruptured ectopic : Plan: Postop day 0, patient seen on floor. She is awake, talking and lying propped in bed. Her mom has arrived and is at bedside. She states she feels a bit bloated, but overall better. She has eaten some applesauce. Is trying to sip some fluids. Pain is controlled. On exam, she is awake alert and oriented. Abdomen is soft, appropriately postoperatively tender, nondistended, no guarding or rebound. Incisions are intact. SCDs in place and on. We discussed the events of surgery, the need for removal of left fallopian tube. Questions were answered. Discussed postoperative expectations. Reviewed hemoglobin, and appears to be stabilizing, as it was 10.6 prior to surgery and now is 9.4. We will check it again in the morning prior to discharge home, p rovided she is feeling well and meeting postoperative goals. Admission and Anticipated Discharge Date Admission Date: April 11, 2023 Results & Data Vital Signs (Past 12 Hours) Vital Signs Temp Pulse Pulse Pulse Resp BP BP 04/11/23 20:55 36.6 C 68 18 116/73 04/11/23 20:26 36.9 C 73 18 115/75 04/11/23 19:55 36.7 C 73 17 129/83 04/11/23 19:35 56 L 17 124/60 04/11/23 19:05 71 20 110/66 04/11/23 18:50 73 18 106/64 04/11/23 18:35 36.3 C L 69 21 114/71 04/11/23 18:25 67 22 117/69 04/11/23 18:15 69 21 119/66 04/11/23 18:05 91 H 17 131/73 04/11/23 17:56 36.0 C L 125 H 15 120/59 L 04/11/23 16:16 103 H 18 103/68 04/11/23 16:03 37.6 C H 72 20 113/67 04/11/23 15:00 108 H 18 129/77 04/11/23 13:45 81 22 04/11/23 13:35 87 20 04/11/23 13:15 119/73 04/11/23 13:15 74 18 04/11/23 13:00 73 18 04/11/23 13:00 109/73 04/11/23 12:58 76 14 04/11/23 12:58 129/73 04/11/23 12:45 70 22 04/11/23 12:45 70 04/11/23 12:44 73 22 04/11/23 12:43 72 16 111/66 04/11/23 12:02 04/11/23 12:02 72 18 115/69 04/11/23 10:39 36.8 C 109 H 18 104/68 Pulse Ox O2 Del Method O2 Flow Rate 04/11/23 20:55 100 Room Air 04/11/23 20:26 100 Room Air 04/11/23 19:55 100 Room Air 04/11/23 19:35 99 Room Air 04/11/23 19:05 99 Room Air 04/11/23 18:50 98 Room Air 04/11/23 18:35 99 Room Air 04/11/23 18:25 99 Room Air 04/11/23 18:15 100 Room Air 04/11/23 18:05 100 Room Air 04/11/23 17:56 100 Oxymask 6 04/11/23 16:16 100 Room Air 04/11/23 16:03 100 Room Air 04/11/23 15:00 100 Room Air 04/11/23 13:45 04/11/23 13:35 04/11/23 13:15 04/11/23 13:15 100 04/11/23 13:00 100 04/11/23 13:00 04/11/23 12:58 100 04/11/23 12:58 04/11/23 12:45 100 04/11/23 12:45 04/11/23 12:44 100 04/11/23 12:43 100 04/11/23 12:02 100 Room Air 04/11/23 12:02 100 Room Air 04/11/23 10:39 100 Room Air
[2023-04-12 06:24] LABS: Basophils # (auto) 0.03 K/uL (0.00-0.20); Basophils % (auto) 0.3 %; Hematocrit (blood only) 25.1 % (37.0-47.0); Hemoglobin 8.7 g/dl (12.0-16.0); Immature Granulocytes # (auto) 0.06 K/uL (0.01-0.20); Immature Granulocytes % (auto) 0.5 %; Lymphocytes # (auto) 2.02 K/uL (1.20-3.40); Lymphocytes % (auto) 16.9 %; Mean Corpuscular Hemoglobin 30.6 pg (25.0-34.0); Mean Corpuscular Hgb Conc 34.7 g/dL (32.0-36.0); Mean Corpuscular Volume 88.4 fL (80.0-100.0); Mean Platelet Volume 8.8 fL (9.4-12.4); Monocytes # (auto) 1.14 K/uL (0.11-0.59); Monocytes % (auto) 9.5 %; Neutrophils # (auto) 8.69 K/uL (1.40-6.50); Neutrophils % (auto) 72.8 %; Platelet Count 221 K/uL (130-400); RDW Coefficient of Variation 11.5 % (11.5-14.5); Red Blood Count 2.84 M/uL (4.20-5.40); White Blood Count 11.94 K/ul (4.8-10.8)
--- NOTE | 2023-04-12 07:42 | Gynecologic Progress Note ---
Date of Service April 12, 2023 Assessment & Plan (1) Ruptured ectopic : Plan: POD#1 doing well. Hgb trend has stabilized. Vitals stable. Will plan for DC home - Rx Percocet #10 tabs. Discussed tylenol (if not taking Percocet) and ibuprofen, stool softener. Once bowel movements resume, will start daily iron supplement. Reviewed DC instructions. Follow up in office 2 weeks. Admission and Anticipated Discharge Date Admission Date: April 11, 2023 Subjective POD#1 doing well. Has tolerated PO. Drinking fluids and eating crackers/apple sauce. Urinating ok. Pain controlled with Percocet. Ambulating ok. Physical Exam Physical Exam: Gen: AAOX3 NAD Abd: soft, NTTP, incisions intact. Nondistended, no guarding/rebound. Ext: no edema, SCDs on Results & Data Vital Signs (Past 12 Hours) Vital Signs Temp Pulse Resp BP Pulse Ox O2 Del Method 04/12/23 03:25 36.3 C L 71 18 105/65 99 Room Air 04/11/23 23:00 36.7 C 93 H 18 120/76 99 Room Air 04/11/23 21:49 36.9 C 82 18 116/93 100 Room Air 04/11/23 20:55 36.6 C 68 18 116/73 100 Room Air 04/11/23 20:26 36.9 C 73 18 115/75 100 Room Air 04/11/23 19:55 36.7 C 73 17 129/83 100 Room Air
--- NOTE | 2023-04-12 07:49 | Discharge Summary ---
Date of Service April 12, 2023 Admission HPI Per Admitting Provider 23yo with + test at home, came to ER yesterday with irregular bleeding. She returns today with severely worsened symptoms. She had taken Plan B on 03/06/2023 after unprotected intercourse, and then had a normal period starting 03/20/2023. She then developed abnormal bleeding over the past 2 weeks. Yesterday, her beta hCG quant was 302, today it is 155. She then returned to the emergency department today after starting to feel worse last night. She develops difficulty breathing, abdominal pain-worse on left side. She has not eaten much today except for a few sips of water approximately 4 to 5 hours ago. Hemoglobin yesterday was 14.7, on arrival to ER today it was 12.3. A repeat is pending. Yesterday's ultrasound showed a normal uterus, unremarkable ovaries and no adnexal masses or lesions. Today's ultrasound shows a normal endometrium, 0.4 cm endometrial stripe. Trace fluid versus tiny cystic focus within the endometrium, no intrauterine gestation. Normal ovaries. Moderate to large volume of complex free fluid in the pelvis, this is also seen in the upper abdomen. No definite adnexal lesion identified. Discharge Data Consultations 04/11/23 17:15 ED Decision to Admit Stat Procedures Performed Operation Date: 04/11/23 13:50 Actual Procedures p Laparoscopic Left Salpingectomy(Left) - Viktoriya Mcdonnell DO Hospital Course (1) Ruptured ectopic : Course: Presented to ER with chest pain, workup showed hemoperitoneum - found to have ruptured ectopic. Taken to OR for emergent laparoscopy, left salpingectomy performed. Kept overnight at [facility] to monitor vitals and Hgb. Vitals stable, Hgb stabilized. DC home POD1. POD#1 doing well. Hgb trend has stabilized. Vitals stable. Will plan for DC home - Rx Percocet #10 tabs. Discussed tylenol (if not taking Percocet) and ibuprofen, stool softener. Once bowel movements resume, will start daily iron supplement. Reviewed DC instructions. Follow up in office 2 weeks. Coding Level of Care Code None Diagnoses Ruptured ectopic O00.90
== END 2023-04-12 09:15 | disposition home or self-care (01) | DRG 817 ==
LOC: ED 10:37 → 4E1 16:16